=== PATIENT | male | born 1970 | race Hispanic/Latino ===

== ENCOUNTER 2017-02-13 21:57 | Emergency (ER) | payer MEDICAID ==
[2017-02-13 22:57] LABS: BASO # 0.1 K/uL (0.0-0.2); EOS # 0.2 K/uL (0.0-0.7); EOS % 3.8 % (0.0-4.0); HEMATOCRIT 38.3 % (35.0-51.0); LYMPH # 1.1 K/uL (1.0-4.3); LYMPH % 20.9 % (20.0-40.0); MEAN CELL VOLUME 82.4 fL (80.0-94.0); MEAN CORPUSCULAR HEMOGLOBIN 27.2 pg (27.0-31.0); MEAN CORPUSCULAR HGB CONC 33.1 g/dL (33.0-37.0); MEAN PLATELET VOLUME 9.7 fL (7.2-11.7); MONO # 0.5 K/uL (0.0-0.8); RED CELL DISTRIBUTION WIDTH 14.6 % (11.5-14.5); WHITE BLOOD COUNT 5.2 K/uL (4.8-10.8)
[2017-02-13 23:05] LABS: CHLORIDE 102 mmol/L (98-107); POTASSIUM 3.4 mmol/L (3.6-5.2); SODIUM 139 mmol/L (132-148)
[2017-02-13 23:07] LABS: ALKALINE PHOSPHATASE 69 U/L (38-126); AST/SGOT 70 U/L (17-59); BILIRUBIN,TOTAL 0.8 mg/dL (0.2-1.3); CARBON DIOXIDE 27 mmol/L (22-30); GFR AFRICAN-AMERICAN > 60; TOTAL PROTEIN 7.1 g/dL (6.3-8.3)
[2017-02-13 23:08] LABS: ALT/SGPT 55 U/L (21-72); BLOOD UREA NITROGEN 15 mg/dL (9-20); CALCIUM 9.1 mg/dl (8.6-10.4); GLUCOSE,RANDOM 132 mg/dL (75-110)
[2017-02-13 23:09] LABS: ALCOHOL SERUM < 10 mg/dl (0-10)
[2017-02-13 23:43] LABS: RBC URINE 1 /hpf (0-3); URINE BACTERIA RARE (<OCC); URINE BILIRUBIN NEGATIVE (NEGATIVE); URINE BLOOD NEGATIVE (NEGATIVE); URINE COLOR Yellow (YELLOW); URINE GLUCOSE (UA) NORMAL (Normal); URINE KETONE NEGATIVE (NEGATIVE); URINE LEUKOCYTE ESTERASE NEG Leu/uL (Negative); URINE PROTEIN NEGATIVE (NEGATIVE); URINE UROBILINOGEN NORMAL mg/dL (0.2-1.0); WBC URINE 2 /hpf (0-5)
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
[2017-02-14] MEDS ORDERED: Peg-Electrolyte Oral Soln 4L (Golytely) PO ONE ×2 (04:16→09:27)
[2017-02-14 08:01] VITALS: PULSE 62
--- NOTE | 2017-02-14 09:25 | RAD ---
Lumbar spine four views History: Pain. Comparison available. Findings: [place] metallic radiopaque foreign body measuring approximately 6.5 centimeters seen projecting over the rectum. Postsurgical changes in the lumbar spine with spinal rods seen at the L3 through L5 levels posteriorly. Productive change seen at the surgical site. Grade 1 retrolisthesis of L2 on L3. Multilevel disc space narrowing seen throughout the lower thoracic and upper lumbar spine with anterior osteophyte formation. Suggestion of mild loss of height of T11 vertebral body. Surgical clips upper abdomen. Fecal retention in the colon. Impression: 6.5 centimeter metallic radiopaque foreign body seen at the level of the rectum. Clinical correlation. Postsurgical and degenerative changes in the visualized spine.
--- NOTE | 2017-02-14 11:19 | RAD ---
Abdomen two views History: Foreign body. Comparison: Lumbar spine x-ray dated 02/14/2017 Findings: Interval removal of a rectal foreign body. Surgical clips in the upper abdomen. Postsurgical changes in the spine. Fecal retention in the colon. Impression: Interval removal of a rectal foreign body. Fecal retention in the colon.
[2017-02-14 12:15] VITALS: BP 132/89; RESP 16; TEMP 97.5; O2SAT 99
== END 2017-02-14 12:00 | disposition home or self-care (01) ==
LOC: C.ER 21:57
DX: F32.89 Other specified depressive episodes (principal); F11.10 Opioid abuse, uncomplicated